=== PATIENT | female | born 1995 | race Caucasian/White ===

== ENCOUNTER 2018-04-07 06:01 | Emergency (ER) | payer MEDICAID ==
[~2018-04-07] VITALS: Ht 162.6 cm; Wt 96.0 kg
[2018-04-07 09:40] VITALS: BP 112/62
[2018-04-07] MEDS ORDERED: ONDANSETRON HCL 4MG/2ML INJ IV STA (10:28)
[2018-04-07] MEDS ORDERED: MORPHINE SULFATE 4 MG/ML CPJ (NOT FOR IM USE) IV STA (10:28)
[2018-04-07 12:00] LABS: BASOPHILS % 0.5 % (0.0-2.0); EOSINOPHILS % 1.7 % (0.0-5.0); HEMOGLOBIN. 13.4 g/dL (12.0-16.0); LYMPHOCYTES % 28.4 % (20.0-50.0); MEAN CORPUSCULAR VOLUME 89.5 fL (81.0-99.0); MEAN PLATELET VOLUME 11.1 fl (7.4-10.4); MONOCYTES % 6.8 % (2.0-8.0); NEUTROPHILS % 62.6 % (40.0-76.0); PLATELET 236 x1000/uL (130-400); RED BLOOD CELL COUNT 4.47 mill/uL (4.2-5.4); RED CELL DISTRIBUTION WIDTH 13.6 % (11.6-14.6)
[2018-04-07 12:07] LABS: CHLORIDE 105 mEq/L (98-107); PROTHROMBIN TIME 10.5 sec (9.1-11.1)
[2018-04-07 12:44] LABS: HCG SCREEN NEGATIVE
== END 2018-04-07 13:20 | disposition home or self-care (01) ==
LOC: ER 06:01
DX: K80.20 Calculus of gallbladder without cholecystitis without obstruction (principal); R50.9 Fever, unspecified; R42 Dizziness and giddiness
CPT/HCPCS: 36415; 76705; 80053; 81025; 83690; 84703; 85025; 85610; 86850; 86900; 86901; 96374; 96375; 99285; J2270; J2405

== ENCOUNTER 2018-11-08 16:28 | Emergency (ER) | payer MEDICAID ==
[~2018-11-08] VITALS: Ht 170.2 cm; Wt 97.0 kg
[2018-11-08] MEDS ORDERED: TETANUS, DIPHTHERIA, PERTUSSIS VAC/PF 0.5ML (>7YR OLD) IM ONE (17:30)
[2018-11-08] MEDS ORDERED: BACITRACIN ZINC OINT UDPKT TOP ONE (17:30)
[2018-11-08] MEDS ORDERED: IBUPROFEN 800MG TABLET PO ONE (17:30)
[2018-11-08 18:53] VITALS: BP 123/76
== END 2018-11-08 18:54 | disposition home or self-care (01) ==
LOC: ER 16:28
DX: M25.572 Pain in left ankle and joints of left foot (principal)
CPT/HCPCS: 73610; 73630; 90471; 90715; 99283

== ENCOUNTER 2020-02-17 13:14 | Emergency (ER) | payer MEDICAID ==
[~2020-02-17] VITALS: Ht 162.6 cm; Wt 100.0 kg
[2020-02-17] MEDS ORDERED: KETOROLAC 30MG/ML VIAL IM ONE (13:45)
[2020-02-17] MEDS ORDERED: HYDROCODONE/ACETAMINOPHEN 5/325MG TABLET PO ONE (15:30)
[2020-02-17 15:42] VITALS: BP 124/76
== END 2020-02-17 15:44 | disposition home or self-care (01) ==
LOC: ER 13:14
DX: M25.572 Pain in left ankle and joints of left foot (principal)
CPT/HCPCS: 73610; 96372; 99283; J1885

== ENCOUNTER 2020-08-01 09:12 | Emergency (ER) | payer MEDICAID, OTHER ==
[~2020-08-01] VITALS: Ht 162.6 cm; Wt 108.9 kg
[2020-08-01] MEDS ORDERED: MORPHINE SULFATE 4 MG/ML CPJ (NOT FOR IM USE) IV ONE (10:30)
[2020-08-01] MEDS ORDERED: SODIUM CHLORIDE 0.9% 1,000 ML IV ONE (10:30)
[2020-08-01 10:33] LABS: BASOPHILS % 0.6 % (0.0-2.0); EOSINOPHILS % 2.4 % (0.0-5.0); HEMATOCRIT. 43.3 % (36.0-48.0); HEMOGLOBIN. 14.5 g/dL (12.0-16.0); LYMPHOCYTES % 27.5 % (20.0-50.0); MEAN CORPUSCULAR HEMOGLOBIN 29.8 pg (28.0-32.0); MEAN CORPUSCULAR VOLUME 89.2 fL (81.0-99.0); MEAN PLATELET VOLUME 11.2 fl (7.4-10.4); NEUTROPHILS % 62.5 % (40.0-76.0); PLATELET 237 x1000/uL (130-400); RED BLOOD CELL COUNT 4.86 mill/uL (4.2-5.4); RED CELL DISTRIBUTION WIDTH 13.5 % (11.6-14.6)
[2020-08-01 10:39] LABS: CLARITY URINE CLOUDY (CLEAR); COLOR URINE YELLOW (YELLOW); KETONES URINE NEGATIVE (NEGATIVE); LEUKOCYTE ESTERASE URINE TRACE (NEGATIVE); NITRITE URINE NEGATIVE (NEGATIVE); OCCULT BLOOD URINE NEGATIVE (NEGATIVE); PH URINE 5.5 (4.5-8.0); PROTEIN URINE NEGATIVE (NEGATIVE); SPECIFIC GRAVITY URINE 1.023 (1.005-1.030); UROBILINOGEN URINE 0.2 E.U./dL (0.2-1.0)
[2020-08-01 10:39] LABS: CHLORIDE 102 mEq/L (98-107)
[2020-08-01 11:04] LABS: HCG SCREEN NEGATIVE
[2020-08-01] MEDS ORDERED: KETOROLAC 15MG/ML VIAL IV ONE (12:00)
[2020-08-01 13:38] VITALS: BP 117/74
== END 2020-08-01 13:39 | disposition home or self-care (01) ==
LOC: ER 09:23
DX: R10.11 Right upper quadrant pain (principal); Z90.49 Acquired absence of other specified parts of digestive tract; Z91.013 Allergy to seafood
CPT/HCPCS: 36415; 76705; 80053; 81003; 81025; 83690; 84703; 85025; 93005; 96361; 96374; 96375; 99285; J1885; J2270; J7030; Z7610

== ENCOUNTER 2022-01-24 01:51 | Emergency (ER) | payer MEDICAID, OTHER ==
[~2022-01-24] VITALS: Ht 162.6 cm; Wt 113.0 kg
[2022-01-24 02:10] VITALS: BP 125/86
[2022-01-24] MEDS ORDERED: IBUP-2029 MT (05:27)
[2022-01-24] MEDS ORDERED: IBUPROFEN 600MG TABLET PO ONE (05:30)
== END 2022-01-24 05:40 | disposition home or self-care (01) ==
LOC: ER 01:51
DX: B34.9 Viral infection, unspecified (principal); Z20.822 Contact with and (suspected) exposure to COVID-19; Z90.49 Acquired absence of other specified parts of digestive tract; Z91.013 Allergy to seafood
CPT/HCPCS: 87426; 99283; C9803

== ENCOUNTER 2023-08-15 08:01 | Emergency (ER) | payer MEDICAID, OTHER ==
[~2023-08-15] VITALS: Ht 162.6 cm; Wt 120.0 kg
[~2023-08-15 08:01] MED LIST: IBUP-2029 MT
[2023-08-15 08:09] VITALS: O2SAT 98
[2023-08-15] MEDS ORDERED: DIPHENHYDRAMINE 50MG CAPSULE PO ONE (08:45)
[2023-08-15] MEDS: DEXAMETHASONE 10 MG/ML VIAL IM ONE (08:45)
[2023-08-15] MEDS: FAMOTIDINE 20MG TABLET PO ONE (08:45)
[2023-08-15] MEDS: DIPHENHYDRAMINE 25MG CAPSULE PO NR (08:54)
[2023-08-15] MEDS ORDERED: DIPH50CA41 MT (09:46)
[2023-08-15] MEDS ORDERED: P20 MT (09:46)
[2023-08-15 09:54] VITALS: BP 131/78; PULSE 100; RESP 20; TEMP 98.2
== END 2023-08-15 09:56 | disposition home or self-care (01) ==
LOC: ER 08:01
DX: T78.3XXA Angioneurotic edema, initial encounter (principal); E11.9 Type 2 diabetes mellitus without complications; K80.20 Calculus of gallbladder without cholecystitis without obstruction; Z90.49 Acquired absence of other specified parts of digestive tract; Z91.013 Allergy to seafood; X58.XXXA Exposure to other specified factors, initial encounter; Y93.89 Activity, other specified; Y92.89 Other specified places as the place of occurrence of the external cause; Y99.8 Other external cause status
CPT/HCPCS: 81025; 96372; 99283; Q0163; J1100; Z7610